=== PATIENT | female | born 1975 | race Caucasian/White ===

== ENCOUNTER 2022-10-20 15:37 | Emergency (ER) | payer MEDICARE, OTHER ==
[~2022-10-20 15:37] MED LIST: Iopamidol-370 76% 500 ML MDV (1 ML CHARGE) ONE
[2022-10-20] MEDS ORDERED: Aspirin Chewable 81 MG TAB ONE (16:35)
[2022-10-20] MEDS ORDERED: Acetaminophen 325 MG TAB ONE (16:35)
[2022-10-20 17:04] LABS: #Eosinphils 0.1 thou/uL (0.0-0.7); #Monocytes 0.4 thou/uL (0.11-0.59); #Neutrophils 4.8 thou/uL (1.40-6.50); %Basophils 0.6 % (0.0-1.0); %Eosinophils 1.7 % (0.0-10.0); %Lymphocytes 23.8 % (21.0-51.0); %Monocytes 5.3 % (0.0-10.0); %Neutrophils 68.5 % (42.0-75.0); Hemoglobin 13.6 g/dL (12.0-16.0); Mean Corpuscular HGB CONC 33.7 g/dL (32.0-36.0); Mean Corpuscular Hemoglobin 28.9 pg (27.0-31.0); Mean Corpuscular Volume 85.6 fl (78.0-98.0); Mean Platelet Volume 10.3 fL (7.4-10.4); Platelet Count 251 10x3/uL (130-400); Red Blood Cell (RBC) Count 4.71 mill/uL (4.20-5.40); White Blood Cell (WBC) Count 6.9 10x3/uL (4.8-10.8)
[2022-10-20 17:29] LABS: ALT (SGPT) 27 U/L (8-55); AST (SGOT) 19 U/L (5-34); Albumin 4.6 g/dL (3.5-5.0); Alkaline Phosphatase 90 U/L (40-110); Anion Gap 15 mmol/L (10-20); BUN (Urea Nitrogen) 12 mg/dL (7.0-18.7); Bilirubin, Total 0.4 mg/dL (0.2-1.2); Calc. Creatinine Clearance 0 mL/min (70-130); Calcium 10.3 mg/dL (7.8-10.44); Carbon Dioxide 25 mmol/L (22-29); Chloride 104 mmol/L (98-107); Estimated GFR 89; Glucose 112 mg/dL (70-105); Lipase 46 U/L (8-78); Magnesium 1.9 mg/dL (1.6-2.6); Potassium 3.5 mmol/L (3.5-5.1); Protein, Total 8.6 g/dL (6.0-8.3); Sodium 140 mmol/L (136-145)
[2022-10-20] MEDS ORDERED: Pantoprazole 40 MG VIAL ONE (19:30)
[2022-10-20] MEDS ORDERED: Ondansetron PF 4 MG/2 ML Vial ONE (19:30)
[2022-10-20 20:25] LABS: Troponin I Less than 0.010 ng/mL (< 0.028)
[2022-10-20] MEDS ORDERED: methylPREDNISolone Sod Succ 40 MG VIAL ONE (21:19)
[2022-10-20] MEDS ORDERED: diphenhydrAMINE 50 MG/ML VIAL ONE (21:19)
== END 2022-10-21 00:29 | disposition home or self-care (01) ==
LOC: ERS 15:37
DX: R07.9 Chest pain, unspecified (principal); I25.10 Atherosclerotic heart disease of native coronary artery without angina pectoris; E78.5 Hyperlipidemia, unspecified; I10 Essential (primary) hypertension
CPT/HCPCS: 36415; 71046; 71275; 80053; 83690; 83735; 84484; 85025; 85379; 93005; 96374; 96375; C9113; J1200; J2405; J2920; Q9967

== ENCOUNTER 2024-01-23 13:14 | Inpatient (IN) | payer MEDICARE ==
[2024-01-23 14:50] LABS: #Basophils 0.03 10x3/uL (0.0-0.2); %Basophils 0.5 % (0.0-1.0); %Eosinophils 1.1 % (0.0-10.0); %Lymphocytes 19.6 % (21.0-51.0); %Monocytes 5.3 % (0.0-10.0); %Neutrophils 73.1 % (42.0-75.0); Hematocrit 38.9 % (36.0-47.0); Hemoglobin 11.8 g/dL (12.0-16.0); Mean Corpuscular HGB CONC 30.3 g/dL (32.0-36.0); Mean Corpuscular Hemoglobin 23.8 pg (27.0-31.0); Mean Corpuscular Volume 78.4 fL (78.0-98.0); Mean Platelet Volume 9.8 fL (7.4-10.4); Platelet Count 311 10x3/uL (130-400); RBC Distribution Width 15.9 % (11.5-14.5); Red Blood Cell (RBC) Count 4.96 mill/uL (4.20-5.40)
[2024-01-23] MEDS ORDERED: Ondansetron PF 4 MG/2 ML Vial ONE ×2 (14:56→19:10)
[2024-01-23] MEDS ORDERED: Morphine 2 MG/ML VIAL ONE ×2 (14:56→19:10)
[2024-01-23 15:08] LABS: ALT (SGPT) 16 U/L (8-55); AST (SGOT) 12 U/L (5-34); Albumin 4.3 g/dL (3.5-5.0); Alkaline Phosphatase 87 U/L (40-110); Anion Gap 10 mmol/L (10-20); BUN (Urea Nitrogen) 8 mg/dL (7.0-18.7); Bilirubin, Total 0.6 mg/dL (0.2-1.2); Calc. Creatinine Clearance 0 mL/min (70-130); Calcium 10.4 mg/dL (7.8-10.44); Carbon Dioxide 26 mmol/L (22-29); Chloride 108 mmol/L (98-107); Estimated GFR 87; Globulin 4.5 g/dL (2.4-3.5); Glucose 92 mg/dL (70-105); Lipase 27 U/L (8-78); Potassium 3.2 mmol/L (3.5-5.1); Protein, Total 8.8 g/dL (6.0-8.3); Sodium 141 mmol/L (136-145)
[2024-01-23 15:10] LABS: Troponin I Less than 0.010 ng/mL (< 0.028)
[2024-01-23] MEDS ORDERED: Acetaminophen 325 MG TAB PO PRN (17:49)
[2024-01-23] MEDS ORDERED: Nitroglycerin 0.4 MG TAB (25 Tab Bottle) SL PRN (17:49)
[2024-01-23 18:15] LABS: Troponin I Less than 0.010 ng/mL (< 0.028)
[2024-01-23] MEDS ORDERED: Enoxaparin 80 MG (0.8 mL) SYRINGE SC SCH (18:30)
[2024-01-23] MEDS: Ondansetron ODT 4 MG TAB PO PRN (19:31)
[2024-01-23] MEDS: Morphine 4 MG/ML VIAL SLOW IVP PRN (19:31)
[2024-01-23] MEDS ORDERED: levETIRAcetam 500 MG TAB ONE (21:46)
[2024-01-23] MEDS: levETIRAcetam 500 MG TAB PO SCH (21:58)
[2024-01-23 22:02] LABS: Troponin I Less than 0.010 ng/mL (< 0.028)
[2024-01-24] MEDS ORDERED: Electrolyte Replacement Protocol 1 EACH FS SCH (00:30)
[2024-01-24] MEDS: Potassium Chloride 20 MEQ in Premix 1 BAG IVPB SCH (01:30)
[2024-01-24 02:48] VITALS: BMI 25.3
[2024-01-24] MEDS: Ondansetron PF 4 MG/2 ML Vial IVP PRN (04:11)
[2024-01-24] MEDS: Morphine 2 MG/ML VIAL SLOW IVP SCH (04:11)
[2024-01-24] MEDS: Potassium Chloride 20 MEQ TAB PO SCH (04:13)
[2024-01-24 04:49] LABS: #Basophils 0.03 10x3/uL (0.0-0.2); %Basophils 0.6 % (0.0-1.0); %Eosinophils 1.9 % (0.0-10.0); %Lymphocytes 28.2 % (21.0-51.0); %Neutrophils 60.1 % (42.0-75.0); Hematocrit 34.3 % (36.0-47.0); Hemoglobin 10.1 g/dL (12.0-16.0); Mean Corpuscular HGB CONC 29.4 g/dL (32.0-36.0); Mean Corpuscular Hemoglobin 23.7 pg (27.0-31.0); Mean Corpuscular Volume 80.3 fL (78.0-98.0); Mean Platelet Volume 9.8 fL (7.4-10.4); Platelet Count 257 10x3/uL (130-400); Red Blood Cell (RBC) Count 4.27 mill/uL (4.20-5.40)
[2024-01-24 05:03] LABS: Anion Gap 9 mmol/L (10-20); BUN (Urea Nitrogen) 11 mg/dL (7.0-18.7); Calc. Creatinine Clearance 103 mL/min (70-130); Calcium 9.4 mg/dL (7.8-10.44); Carbon Dioxide 29 mmol/L (22-29); Cardiac Risk 3.1 (Less than 4.5); Chloride 105 mmol/L (98-107); Cholesterol 130 mg/dl (< 200 Desired); Estimated GFR 94; Glucose 94 mg/dL (70-105); HDL Cholesterol 42 mg/dL (>60 Neg Risk); LDL Cholesterol, Calculated 70 mg/dL; Potassium 3.3 mmol/L (3.5-5.1); Sodium 140 mmol/L (136-145); Triglycerides 89 mg/dL (Less than 150)
[2024-01-24] MEDS: Magnesium 2 GM/50 ML(in water) 2 GM in Premix 1 BAG IVPB SCH (09:25)
[2024-01-24] MEDS: Pantoprazole 40 MG VIAL IVP SCH (09:26)
[2024-01-24] MEDS: Clopidogrel Bisulfate 75 MG TAB PO SCH (09:26)
[2024-01-24] MEDS: Ketorolac Tromethamine 30 MG (1 mL) VIAL IVP SCH (22:42)
[2024-01-25] MEDS: Pantoprazole DR 40 MG TAB PO SCH (09:56)
[2024-01-25 11:46] VITALS: BP 102/67; TEMP 97.7
== END 2024-01-25 13:43 | disposition home or self-care (01) | DRG 313 ==
LOC: ERS 13:14 → ERHOLD 17:31 → 2SE 22:41 → OBSVTOIN 01-24 19:17
PROVIDERS: ADMIT Internal Medicine; ATTEND Family Medicine
DX: R07.89 Other chest pain (principal); I25.10 Atherosclerotic heart disease of native coronary artery without angina pectoris; I10 Essential (primary) hypertension; E78.5 Hyperlipidemia, unspecified; E87.6 Hypokalemia; G40.909 Epilepsy, unspecified, not intractable, without status epilepticus; Z79.899 Other long term (current) drug therapy; Z91.013 Allergy to seafood; Z91.041 Radiographic dye allergy status; Z88.0 Allergy status to penicillin; Z88.5 Allergy status to narcotic agent; Z88.8 Allergy status to other drugs, medicaments and biological substances; Z90.49 Acquired absence of other specified parts of digestive tract
CPT/HCPCS: 36415; 36416; 71045; 78452; 80048; 80053; 80061; 83690; 83735; 84484; 85025; 93005; 93017; 94760; 96374; 96375; 96376; A9500; G0378; J1885; J2272; J2405; J3480; Q0162

== ENCOUNTER 2024-02-20 09:43 | Emergency (ER) | payer OTHER | END 2024-02-20 11:10 | disposition home or self-care (01) | LOC: ERS 09:43 | DX: S39.012A Strain of muscle, fascia and tendon of lower back, initial encounter (principal); I10 Essential (primary) hypertension; I25.10 Atherosclerotic heart disease of native coronary artery without angina pectoris | CPT/HCPCS: 99283 ==

== ENCOUNTER 2024-02-26 09:16 | Emergency (ER) | payer OTHER ==
[2024-02-26] MEDS ORDERED: Acetaminophen 500 MG TAB ONE (10:00)
[2024-02-26] MEDS ORDERED: Cyclobenzaprine 10 MG TAB ONE (10:00)
[2024-02-26] MEDS ORDERED: Gabapentin 300 MG CAP ONE (10:00)
== END 2024-02-26 10:44 | disposition home or self-care (01) ==
LOC: ERS 09:16
DX: G89.29 Other chronic pain (principal); M54.50 Low back pain, unspecified; M25.562 Pain in left knee; E78.5 Hyperlipidemia, unspecified; I10 Essential (primary) hypertension; I25.10 Atherosclerotic heart disease of native coronary artery without angina pectoris; R56.9 Unspecified convulsions; H91.90 Unspecified hearing loss, unspecified ear; X50.0XXA Overexertion from strenuous movement or load, initial encounter; Z79.899 Other long term (current) drug therapy
CPT/HCPCS: 99283

== ENCOUNTER 2024-02-28 18:53 | Emergency (ER) | payer MEDICARE, SELFPAY ==
[2024-02-28 19:38] LABS: #Basophils 0.04 10x3/uL (0.0-0.2); %Basophils 0.7 % (0.0-1.0); %Eosinophils 1.7 % (0.0-10.0); %Lymphocytes 16.7 % (21.0-51.0); %Monocytes 4.6 % (0.0-10.0); Hemoglobin 11.2 g/dL (12.0-16.0); Mean Corpuscular HGB CONC 30.3 g/dL (32.0-36.0); Mean Corpuscular Hemoglobin 23.7 pg (27.0-31.0); Mean Corpuscular Volume 78.4 fL (78.0-98.0); Mean Platelet Volume 9.2 fL (7.4-10.4); Platelet Count 249 10x3/uL (130-400); RBC Distribution Width 16.2 % (11.5-14.5); Red Blood Cell (RBC) Count 4.72 mill/uL (4.20-5.40)
[2024-02-28 19:54] LABS: ALT (SGPT) 40 U/L (8-55); AST (SGOT) 31 U/L (5-34); Albumin 3.8 g/dL (3.5-5.0); Alkaline Phosphatase 106 U/L (40-110); Anion Gap 13 mmol/L (10-20); BUN (Urea Nitrogen) 10 mg/dL (7.0-18.7); Bilirubin, Total 0.7 mg/dL (0.2-1.2); Calc. Creatinine Clearance 0 mL/min (70-130); Calcium 9.3 mg/dL (7.8-10.44); Carbon Dioxide 22 mmol/L (22-29); Chloride 103 mmol/L (98-107); Estimated GFR 85; Globulin 4.4 g/dL (2.4-3.5); Glucose 171 mg/dL (70-105); Potassium 3.4 mmol/L (3.5-5.1); Protein, Total 8.2 g/dL (6.0-8.3); Sodium 135 mmol/L (136-145)
[2024-02-28] MEDS ORDERED: Ondansetron PF 4 MG/2 ML Vial ONE (19:59)
[2024-02-28] MEDS ORDERED: Morphine 4 MG/ML VIAL ONE (19:59)
[2024-02-28 20:00] LABS: Troponin I Less than 0.010 ng/mL (< 0.028)
[2024-02-29] MEDS ORDERED: Ondansetron PF 4 MG/2 ML Vial ONE (00:08)
== END 2024-02-29 00:20 | disposition home or self-care (01) ==
LOC: ERS 18:53
DX: R07.89 Other chest pain (principal); R11.2 Nausea with vomiting, unspecified; I10 Essential (primary) hypertension; I25.10 Atherosclerotic heart disease of native coronary artery without angina pectoris
CPT/HCPCS: 36415; 71045; 71275; 80053; 83690; 83880; 84484; 85025; 93005; 96374; 96375; 96376; J2272; J2405; Q9967

== ENCOUNTER 2024-03-12 11:17 | Emergency (ER) | payer MEDICARE | END 2024-03-12 12:09 | disposition home or self-care (01) | LOC: ERS 11:17 | DX: Z00.00 Encounter for general adult medical examination without abnormal findings (principal); I10 Essential (primary) hypertension | CPT/HCPCS: 99284 ==